=== PATIENT | female | born 1995 | race Hispanic/Latino ===

== ENCOUNTER 2019-09-30 07:03 | Emergency (ER) | payer OTHER ==
[2019-09-30] MEDS: ONDANSETRON HCL 4 MG ORAL DISINTEGRATING TAB PO ONE (07:44)
== END 2019-09-30 08:36 | disposition home or self-care (01) ==
LOC: FSED 07:03
DX: R11.2 Nausea with vomiting, unspecified (principal); K52.9 Noninfective gastroenteritis and colitis, unspecified; J45.909 Unspecified asthma, uncomplicated
CPT/HCPCS: 81003; 81025; 99282; Q0162

== ENCOUNTER 2022-05-14 13:12 | Emergency (ER) | payer OTHER ==
[~2022-05-14] VITALS: Ht 149.9 cm; Wt 68.7 kg
== END 2022-05-14 13:48 | disposition home or self-care (01) ==
LOC: FSED 13:48
DX: Z48.02 Encounter for removal of sutures (principal)
CPT/HCPCS: 99282; S0630